=== PATIENT | female | born 1980 | race Caucasian/White ===

== ENCOUNTER 2016-08-27 21:44 | Emergency (ER) | payer SELFPAY ==
[2016-08-27] MEDS ORDERED: Ketorolac 60 MG/2 ML SDV IM ONE (22:15)
--- NOTE | 2016-08-27 23:58 | EDM.PDOC ---
ED HPI GENERAL MEDICAL PROBLEM - General Chief Complaint: General Stated Complaint: RASH ON LEGS PAIN AND SWELLING IN LEGS Time Seen by Provider: 08/27/16 22:07 Source of Information: Reports: Patient, Family History Limitations: Reports: Physical impairment - History of Present Illness INITIAL COMMENTS - FREE TEXT/NARRATIVE: 35 years old w f came to the ed due to gen bodyache and lower extr. pain. Pt had her 13th miscarriage 10 days ago. No vag discharge, no N/V/D no other med isues at this time. Onset: gradual Onset Date: 08/25/16 Onset Time: 08:00 Duration: Day(s):, Getting worse Location: Reports: generalized Quality: Reports: Ache, Burning, Dull, Stabbing Severity: moderate Improves with: Reports: Immobilization Worsens with: Reports: Movement Context: Reports: Activity, Exercise, Lifting Associated Symptoms: Reports: rash (lower extr.) - Related Data Allergies Allergy/AdvReac Type Severity Reaction Status Date / Time No Known Allergies Allergy Verified 08/27/16 21:57 Home Meds: Home Meds Citalopram [Citalopram HBr] 40 mg PO DAILY 02/01/14 [History] Hydrocodone/Acetaminophen [Hydrocodon-Acetaminophn 10-325] 1 tab PO QID PRN [History] busPIRone [Buspar] 15 mg PO BID 02/29/16 [History] Omeprazole 20 mg PO DAILY 07/08/16 [History] Past Medical History HEENT History: Reports: Other (see below) Other HEENT History: MYOPIA, ASTIGMATISM Cardiovascular History: Reports: High cholesterol Gastrointestinal History: Reports: Gastritis Genitourinary History: Reports: UTI, recurrent 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: , 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 , Other (see below) Other OB/BYN History: miscarriage x 13 Musculoskeletal History: Reports: Other (see below) Other Musculoskeletal History: CHRONIC PAIN WITH DRYG DEPENDENCE, PLANTAR FASCITIS OF LEFT FOOT Neurological History: Reports: Migraines Psychiatric History: Reports: Addiction, Anxiety - Infectious Disease History Infectious Disease History: Reports: Chicken pox - Past Surgical History HEENT Surgical History: Reports: Oral surgery, Tonsillectomy Female Surgical History: Reports: D&C Neurological Surgical History: Reports: Discectomy, Laminectomy Musculoskeletal Surgical History: Reports: Carpal tunnel, Other (see below) Other Musculoskeletal Surgeries/Procedures:: PLANTAR FASCIA RELEASE Social & Family History - Family History Family Medical History: Noncontributory - Tobacco Use Smoking Status *Q: Current Every Day Smoker Years of Tobacco use: 15 Packs/Tins Daily: 1.5 Used Tobacco, but Quit: No Second Hand Smoke Exposure: Yes - Caffeine Use Caffeine Use: Reports: Energy drinks - Alcohol Use Days Per Week of Alcohol Use: 0 - Recreational Drug Use Recreational Drug Use: Yes Drug Use in Last 12 Months: Yes Recreational Drug Type: Reports: Marijuana/Hashish Recreational Drug Use Frequency: Daily - Living Situation & Occupation Living situation: Reports: , with family ED ROS GENERAL - Review of Systems Review Of Systems: See Below Constitutional: Reports: no symptoms HEENT: Reports: No symptoms Respiratory: Reports: No Symptoms Cardiovascular: Reports: No symptoms Endocrine: Reports: no symptoms GI/Abdominal: Reports: No symptoms : Reports: no symptoms Musculoskeletal: Reports: leg pain, muscle pain Skin: Reports: no symptoms Neurological: Reports: No Symptoms Psychiatric: Reports: No symptoms Hematologic/Lymphatic: Reports: no symptoms Immunologic: Reports: no symptoms ED EXAM, GENERAL - Physical Exam Exam: See Below Exam Limited By: Physical impairment General Appearance: alert, WD/WN, mild distress Eye Exam: bilateral eye: normal inspection Ears: normal external exam, normal canal Ear Exam: bilateral ear: auricle normal Nose: normal inspection, normal mucosa, no blood Throat/Mouth: Normal inspection, Normal lips, Normal teeth, Normal oropharynx Head: atraumatic, normocephalic Neck: normal inspection, supple, non-tender, full range of motion Respiratory/Chest: no respiratory distress, lungs clear, normal breath sounds, no accessory muscle use Cardiovascular: normal peripheral pulses, regular rate, rhythm, no edema, no JVD , no murmur Peripheral Pulses: 3+: femoral (L), femoral (R) GI/Abdominal: normal bowel sounds, soft, non tender, no organomegaly, no distention (Female) Exam: Deferred Rectal (Female) Exam: Deferred Back Exam: normal inspection, full range of motion Extremities: normal inspection, normal range of motion, non-tender, no pedal edema Neurological: alert, oriented, CN II-XII intact, normal cognition, normal gait Psychiatric: normal affect, normal mood Skin Exam: Warm, Dry, Intact Lymphatic: no adenopathy Course - Vital Signs Text/Narrative:: 35 years old w f came to the ed due to gen bodyache and lower extr. pain. Pt had her 13th miscarriage 10 days ago. No vag discharge, no N/V/D no other med isues at this time. PE: Pos Tucker sign lower extr. Imaging: US was neg for DVT Labs: WBC 13K poss from Tobacco use daily. Impression: gen body ache Tx: Toradol Reexam: Improved Plan: D/C to home Last Recorded V/S: Last Vital Signs Temp 37.2 C 08/27/16 22:07 Pulse 92 08/27/16 22:07 Resp 20 08/27/16 22:07 BP 118/74 08/27/16 22:07 Pulse Ox 99 08/27/16 22:07 - Orders/Labs/Meds Orders: Active Orders 24 hr Category Date Time Status VL Duplex Lwr Ext Veins Comp [US] Stat Exams 08/27/16 21:53 Taken Labs: Laboratory Tests 08/27/16 08/27/16 08/27/16 Range/Units 22:05 22:05 22:05 WBC 13.6 H (4.5-12.0) X10-3/uL RBC 3.76 (3.23-5.20) x10(6)uL Hgb 9.9 L (11.5-15.5) g/dL Hct 30.0 (30.0-51.3) % MCV 80.0 (80-96) fL MCH 26.3 L (27.7-33.6) pg MCHC 32.8 (32.2-35.4) g/dL RDW 14.9 (11.5-15.5) % Plt Count 407 H (125-369) X10(3)uL MPV 7.6 (7.4-10.4) fL Neut % (Auto) 71.3 (46-82) % Lymph % (Auto) 17.8 (13-37) % [place] % (Auto) 9.4 (4-12) % Eos % (Auto) 1 (1.0-5.0) % Baso % (Auto) 0 (0-2) % Neut # (Auto) 9.7 H (1.6-8.3) # Lymph # (Auto) 2.4 (0.6-5.0) # [place] # (Auto) 1.3 (0.0-1.3) # Eos # (Auto) 0.2 (0.0-0.8) # Baso # (Auto) 0.0 (0.0-0.2) # PT 10.4 (8.7-11.1) INR 1.03 (0.89-1.13) Sodium 137 (135-145) mmol/L Potassium 3.7 (3.5-5.3) mmol/L Chloride 102 (100-110) mmol/L Carbon Dioxide 29 (23-29) mmol/L BUN 8 (5-20) mg/dL Creatinine 0.7 (0.6-1.3) mg/dL Est Cr Clr Drug Dosing 98.71 mL/min Estimated GFR (MDRD) > 60 (>60) BUN/Creatinine Ratio 11.4 (9-20) Glucose 114 (80-116) mg/dL Calcium 9.0 (8.6-10.2) mg/dL HCG, Quant (2.0 - ) mIU/mL Urine Color (YELLOW) Urine Appearance (CLEAR) Urine pH (5.0-6.5) Ur Specific [place] (1.010-1.025) Urine Protein (NEGATIVE) mg/dL Urine Glucose (UA) (NEGATIVE) mg/dL Urine Ketones (NEGATIVE) mg/dL Urine Occult Blood (NEGATIVE) Urine Nitrite (NEGATIVE) Urine Bilirubin (NEGATIVE) Urine Urobilinogen (NEGATIVE) mg/dL Ur Leukocyte Esterase (NEGATIVE) Urine RBC (0) Urine WBC (0) Ur Squamous Epith Cells (NS,R,O) Urine Bacteria (NS) Urine HCG, Qual (NEGATIVE) 08/27/16 08/27/16 08/27/16 Range/Units 22:05 22:15 22:15 WBC (4.5-12.0) X10-3/uL RBC (3.23-5.20) x10(6)uL Hgb (11.5-15.5) g/dL Hct (30.0-51.3) % MCV (80-96) fL MCH (27.7-33.6) pg MCHC (32.2-35.4) g/dL RDW (11.5-15.5) % Plt Count (125-369) X10(3)uL MPV (7.4-10.4) fL Neut % (Auto) (46-82) % Lymph % (Auto) (13-37) % [place] % (Auto) (4-12) % Eos % (Auto) (1.0-5.0) % Baso % (Auto) (0-2) % Neut # (Auto) (1.6-8.3) # Lymph # (Auto) (0.6-5.0) # [place] # (Auto) (0.0-1.3) # Eos # (Auto) (0.0-0.8) # Baso # (Auto) (0.0-0.2) # PT (8.7-11.1) INR (0.89-1.13) Sodium (135-145) mmol/L Potassium (3.5-5.3) mmol/L Chloride (100-110) mmol/L Carbon Dioxide (23-29) mmol/L BUN (5-20) mg/dL Creatinine (0.6-1.3) mg/dL Est Cr Clr Drug Dosing mL/min Estimated GFR (MDRD) (>60) BUN/Creatinine Ratio (9-20) Glucose (80-116) mg/dL Calcium (8.6-10.2) mg/dL HCG, Quant 301 (2.0 - ) mIU/mL Urine Color Yellow (YELLOW) Urine Appearance Clear (CLEAR) Urine pH 6.0 (5.0-6.5) Ur Specific [place] 1.005 L (1.010-1.025) Urine Protein Negative (NEGATIVE) mg/dL Urine Glucose (UA) Normal (NEGATIVE) mg/dL Urine Ketones Negative (NEGATIVE) mg/dL Urine Occult Blood Negative (NEGATIVE) Urine Nitrite Negative (NEGATIVE) Urine Bilirubin Negative (NEGATIVE) Urine Urobilinogen Normal (NEGATIVE) mg/dL Ur Leukocyte Esterase Negative (NEGATIVE) Urine RBC 0-5 (0) Urine WBC 0-5 (0) Ur Squamous Epith Cells Occasional (NS,R,O) Urine Bacteria Rare H (NS) Urine HCG, Qual Positive H (NEGATIVE) Meds: Medications Discontinued Medications Generic Name Dose Route Start Last Admin Trade Name Freq PRN Reason Stop Dose Admin Ketorolac Tromethamine 60 mg 08/27/16 22:15 08/27/16 22:22 Toradol IM 08/27/16 22:16 60 mg ONETIME ONE Administration Departure - Departure Time of Disposition: 00:04 Disposition: Home, Self-Care 01 Condition: good Clinical Impression: Muscular aches Instructions: Miscarriage, [id number] Referrals: Josesito Davis MD [Primary Care Provider] - Forms: ED Department Discharge Additional Instructions: Please apply ice to the affected area, please take Motrin for pain, please f/u, come back to the ed if the symptoms get worse acutely - My Orders Last 24 Hours: My Active Orders 08/27/16 21:53 VL Duplex Lwr Ext Veins Comp [US] Stat - Assessment/Plan Last 24 Hours: My Active Orders 08/27/16 21:53 VL Duplex Lwr Ext Veins Comp [US] Stat
[2016-08-28 00:15] VITALS: BP 120/65
--- NOTE | 2016-08-28 10:55 | US ---
INDICATION: Positive Homans sign both legs, pain, question DVT. DUPLEX ULTRASOUND, RIGHT LOWER EXTREMITY VEINS: Utilizing 2-D real time, duplex Doppler spectral analysis and color flow imaging, examination of the right lower extremity veins revealed no evidence of deep venous thrombosis or obstruction. Compression views showed no abnormal lack of compression to suggest thrombosis. No evidence of incompetence of the valves was identified. IMPRESSION: Duplex ultrasound, right lower extremity veins, shows no evidence of deep venous thrombosis or incompetence. DUPLEX ULTRASOUND, LEFT LOWER EXTREMITY VEINS: Utilizing 2-D real time, duplex Doppler spectral analysis and color flow imaging, examination of the left lower extremity veins revealed no evidence of deep venous thrombosis or obstruction. Compression views showed no abnormal lack of compression to suggest thrombosis. No evidence of incompetence of the valves was identified. IMPRESSION: Duplex ultrasound, left lower extremity veins, shows no evidence of deep venous thrombosis or incompetence. [facility]
== END 2016-08-28 00:15 | disposition home or self-care (01) ==
LOC: FB.ED 21:44
DX: M79.1 Myalgia (principal); O03.9 Complete or unspecified spontaneous abortion without complication; M79.606 Pain in leg, unspecified; E78.00 Pure hypercholesterolemia, unspecified; F17.200 Nicotine dependence, unspecified, uncomplicated; Z79.899 Other long term (current) drug therapy
CPT/HCPCS: 36415; 80048; 81001; 81025; 84702; 85025; 85610; 93970; 96372; 99284; J1885; 99283